=== PATIENT | female | born 1985 | race Caucasian/White ===

== ENCOUNTER 2017-02-02 01:53 | Emergency (ER) | payer OTHER ==
[~2017-02-02] VITALS: Ht 172.7 cm; Wt 90.0 kg
[2017-02-02 04:19] VITALS: BP 92/68
== END 2017-02-02 04:20 | disposition home or self-care (01) ==
LOC: EME 01:53
DX: M62.838 Other muscle spasm (principal); M79.672 Pain in left foot
CPT/HCPCS: 73610; 73630; 99281; 99283